=== PATIENT | female | born 1990 | race Native Hawaiian/Other Pacific Islander ===

== ENCOUNTER 2016-08-01 09:47 | Outpatient (CLI) | payer BC ==
[~2016-08-01 09:47] MED LIST: CAMILA0.35 MG OR; HYDR25TA60 PO; LOSA50TA PO
[2016-08-01 10:10] LABS: PLATELET COUNT 266 K/uL (152-353)
[2016-08-01 10:39] LABS: POTASSIUM 3.5 mmol/L (3.6-5.2); SODIUM 133 mmol/L (136-145)
== END 2016-08-01 10:47 | disposition home or self-care (01) ==
LOC: LABW 09:47
PROVIDERS: Internal Medicine
DX: I10 Essential (primary) hypertension (principal); E66.9 Obesity, unspecified
CPT/HCPCS: 36415; 80053; 80061; 81000; 84439; 84443; 85027